=== PATIENT | female | born 1940 | race Caucasian/White ===

== ENCOUNTER 2024-12-23 11:01 | Day surgery (SDC) | payer MEDICARE ==
[2024-12-23] MEDS: Tetracaine HCl/PF 0.5% 4 ML Bottle EYEBOTH SCH (10:59)
[2024-12-23] MEDS: Phenylephrine 2.5% Ophth Soln 2 ML Bot EYELF SCH (11:00)
[2024-12-23] MEDS: Pilocarpine 4% Ophth Soln 15 ML Bot EYELF SCH (11:01)
[2024-12-23] MEDS: Brimonidine 0.2% Ophth Soln 5 ML Bottle EYELF SCH (11:01)
[2024-12-23] MEDS: Cefuroxime 10 MG/ML SYRINGE EYELF SCH (11:01)
[2024-12-23] MEDS: Polymyxin B/Trimethoprim 10 ML Bottle EYELF SCH (11:05)
[2024-12-23] MEDS: Tropicamide 1% Ophth Soln 3 ML Bottle EYELF SCH (11:40)
[2024-12-23] MEDS: Lidocaine 1% PF 2 ML SDV INJECT SCH (12:33)
== END 2024-12-23 13:01 | disposition home or self-care (01) ==
LOC: JD.SDS 11:01
PROVIDERS: ATTEND Ophthalmology
DX: H25.813 Combined forms of age-related cataract, bilateral (principal); E78.2 Mixed hyperlipidemia; Z88.8 Allergy status to other drugs, medicaments and biological substances
CPT/HCPCS: 66984; A9270; J0697; J3490

== ENCOUNTER 2025-01-20 08:22 | Day surgery (SDC) | payer MEDICARE ==
[2025-01-20] MEDS: Phenylephrine 2.5% Ophth Soln 2 ML Bot EYERT SCH (07:26)
[2025-01-20] MEDS: Lidocaine 1% PF 2 ML SDV INJECT SCH (07:26)
[2025-01-20] MEDS: Tetracaine HCl/PF 0.5% 4 ML Bottle EYEBOTH SCH (07:26)
[2025-01-20] MEDS: Polymyxin B/Trimethoprim 10 ML Bottle EYERT SCH (07:26)
[2025-01-20] MEDS: Pilocarpine 4% Ophth Soln 15 ML Bot EYERT SCH (07:26)
[2025-01-20] MEDS: Brimonidine 0.2% Ophth Soln 5 ML Bottle EYERT SCH (07:26)
[2025-01-20] MEDS: Cefuroxime 10 MG/ML SYRINGE EYERT SCH (07:26)
[2025-01-20] MEDS: Tropicamide 1% Ophth Soln 3 ML Bottle EYERT SCH (09:42)
== END 2025-01-20 11:15 ==
LOC: JD.SDS 08:22
PROVIDERS: ATTEND Ophthalmology
DX: H25.811 Combined forms of age-related cataract, right eye (principal); H52.31 Anisometropia; Z96.1 Presence of intraocular lens; E78.2 Mixed hyperlipidemia; Z79.899 Other long term (current) drug therapy; Z88.8 Allergy status to other drugs, medicaments and biological substances
CPT/HCPCS: A9270-GY; J0697; J3490